=== PATIENT | female | born 1960 | race Caucasian/White ===

== ENCOUNTER 2019-02-11 20:56 | Emergency (ER) | payer BC ==
[~2019-02-11] VITALS: Ht 167.6 cm; Wt 70.3 kg
[~2019-02-11 20:56] MED LIST: ASPIR 8181 MG PER TUBE; ATORVASTATIN CA40 MG PO; CARVEDILOL3.125 MG PO; EFFIENT10 MG PO; FISH OIL 1,001000 M2 PO; LEVOTHYROXINE0.05 MG PO; NITROGLYCERIN0.4 MG SUBLING; UNICOMPLEX M TA1 TA1 PO
[2019-02-11] MEDS ORDERED: IBU600 MG PO (22:29)
[2019-02-11 23:44] VITALS: BP 120/69
== END 2019-02-11 23:45 | disposition home or self-care (01) ==
LOC: M.ERS 20:56
DX: S62.102A Fracture of unspecified carpal bone, left wrist, initial encounter for closed fracture (principal); S63.591A Other specified sprain of right wrist, initial encounter; S80.02XA Contusion of left knee, initial encounter; S80.01XA Contusion of right knee, initial encounter; S00.531A Contusion of lip, initial encounter; Z98.890 Other specified postprocedural states; Z88.5 Allergy status to narcotic agent; W18.39XA Other fall on same level, initial encounter; Y93.89 Activity, other specified; Y92.89 Other specified places as the place of occurrence of the external cause; Y99.8 Other external cause status

== ENCOUNTER → 2019-04-20 | Outpatient (CLI) | payer BC ==
[~2019-04-20] MED LIST changes: +IBU600 MG PO
== END ==
LOC: M.RAD 02-12 08:00
DX: Z12.31 Encounter for screening mammogram for malignant neoplasm of breast (principal); M81.0 Age-related osteoporosis without current pathological fracture

== ENCOUNTER 2020-09-25 10:28 | Emergency (ER) | payer BC ==
[~2020-09-25] VITALS: Ht 167.6 cm; Wt 70.3 kg
[2020-09-25] MEDS ORDERED: MECLIZINE HCL25 M1 PO (13:18)
[2020-09-25 13:49] LABS: CALCIUM 9.7 mg/dL (8.5-10.1); CREATININE 0.8 mg/dL (0.6-1.3)
[2020-09-25 13:58] VITALS: BP 130/65
--- NOTE | 2020-09-25 16:47 | EKG ---
[place] [address] ELECTROCARDIOGRAM REPORT Name: PERLABARRINGTON Room: [facility]#: [id number] Admission: 09/25/20 Attend Phys: Discharge: 09/25/20 Date of : 64 Date of Service: 09/25/20 1113 Report #: [id number] THIS REPORT FOR: //name// [facility] ED Test Date: 2020-09-25 Test Time: 11:13:02 Pat Name: BARRINGTON PERLA Department: Room: Gender: Product Tester: TDS : 1960 Requested By: Yonny Lugo Order Number: [id number] Mau MD: Froilan Lion Measurements Intervals [place] Rate: 58 P: 30 LA: 164 QRS: 54 QRSD: 95 T: 23 QT: 438 QTc: 431 Interpretive Statements Sinus rhythm Probable left atrial enlargement Low voltage, precordial leads Minimal ST depression, lateral leads Compared to ECG 06/15/2017 07:49:28 ST (T wave) deviation now present Electronically Signed On 09-25-2020 16:47:04 [employer] MACHINE OPERATOR by Froilan Lion [email or web address] <ELECTRONICALLY SIGNED> By: Froilan Lion MD, [facility] 09/25/20 1647 1113 1113 Froilan Lion MD, [facility] /EPI
== END 2020-09-25 13:59 | disposition home or self-care (01) ==
LOC: M.ERS 10:28
PROVIDERS: Emergency Medicine Emergency Medical Services
DX: H81.11 Benign paroxysmal vertigo, right ear (principal); I25.2 Old myocardial infarction; Z88.5 Allergy status to narcotic agent; Z79.899 Other long term (current) drug therapy; Z79.82 Long term (current) use of aspirin; Z95.5 Presence of coronary angioplasty implant and graft; Z90.89 Acquired absence of other organs

== ENCOUNTER → 2020-11-20 | Outpatient (CLI) | payer BC ==
[~2020-11-20] MED LIST changes: +MECLIZINE HCL25 M1 PO
== END ==
LOC: M.RAD 07:00
PROVIDERS: ATTEND Family Medicine
DX: Z12.31 Encounter for screening mammogram for malignant neoplasm of breast (principal); N64.89 Other specified disorders of breast

== ENCOUNTER → 2021-09-12 | Outpatient (CLI) | payer BC | LOC: M.LAB 06:15 | PROVIDERS: ATTEND Internal Medicine Gastroenterology | DX: Z01.812 Encounter for preprocedural laboratory examination (principal); Z20.822 Contact with and (suspected) exposure to COVID-19 ==

== ENCOUNTER → 2021-09-18 | Outpatient (CLI) | payer BC ==
[2021-09-18 11:43] LABS: HEMATOCRIT 43.3 % (37.0-47.0); HEMOGLOBIN 14.6 gm/dL (12.0-15.0); MCH 29.3 pg (26.0-34.0); MCHC 33.7 g/dL (28.0-37.0); MCV 87.1 fL (80.0-100.0); MPV 6.4 fl. (7.2-11.1); NUCLEATED RBCS 0 /100WBC; PLATELET COUNT* 313 thou/uL (150-400); RBC 4.97 mil/uL (4.20-5.00); RDW-CV 13.3 % (10.5-14.5); WBC 4.4 thou/uL (4.0-11.0)
[2021-09-18 11:53] LABS: ALBUMIN 3.9 g/dL (3.4-5.0); CALCIUM 9.5 mg/dL (8.5-10.1); CREATININE 0.8 mg/dL (0.6-1.3); POTASSIUM 4.1 mmol/L (3.5-5.1); TOTAL BILIRUBIN 1.3 mg/dL (<0.1-1.0); TOTAL PROTEIN 7.6 g/dL (6.4-8.2)
[2021-09-18 12:29] LABS: % SATURATION 34 % (20-39); IRON 104 ug/dL (50-175)
[2021-09-18 13:03] LABS: ESR (SEDRATE) 3 mm/hr (0-30)
[2021-09-18 14:53] LABS: ABSOLUTE EOSINOPHILS 0.1 thou/uL (0.0-0.7); ABSOLUTE LYMPHOCYTES 1.2 thou/uL (0.8-5.3); ABSOLUTE MONOCYTES 0.1 thou/uL (0.0-1.2)
[2021-09-18 14:54] LABS: PLATELET ESTIMATE ADEQUATE
== END ==
LOC: M.CT 11:14
PROVIDERS: ATTEND Internal Medicine Gastroenterology
DX: I86.8 Varicose veins of other specified sites (principal); J98.11 Atelectasis; D50.9 Iron deficiency anemia, unspecified

== ENCOUNTER → 2021-12-03 | Outpatient (CLI) | payer BC | LOC: M.RAD 15:05 | PROVIDERS: ATTEND Nurse Practitioner Family | DX: Z12.31 Encounter for screening mammogram for malignant neoplasm of breast (principal) ==